=== PATIENT | male | born 2000 | race Caucasian/White ===

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

== ENCOUNTER 2021-03-07 07:28 | Emergency (ER) | payer OTHER ==
[~2021-03-07] VITALS: Ht 180.3 cm; Wt 81.0 kg
[2021-03-07] MEDS ORDERED: IV NORMAL SALINE 1,000ML 1,000 ML IV ONE ×2 (07:45→08:45)
[2021-03-07] MEDS ORDERED: levETIRAcetam 500 MG TABLET PO STA (07:55)
[2021-03-07 07:58] LABS: BASO # 0.1 x10^3/uL (0.0-0.2); BASO % 1 % (0-3); EOS # 0.4 x10^3/uL (0.0-0.7); EOS % 2 % (0-3); HEMATOCRIT 45.7 % (39.0-53.0); HEMOGLOBIN 15.3 g/dL (13.0-17.5); LYMPH # 8.4 x10^3/uL (1.0-4.8); LYMPH % 51 % (24-48); MEAN CORPUSCULAR HEMOGLOBIN 30 pg (25-35); MEAN CORPUSCULAR HGB CONC 34 g/dL (31-37); MEAN CORPUSCULAR VOLUME 89 fL (79-100); MONO # 1.1 x10^3/uL (0.0-1.1); MONO % 6 % (0-9); NEUT # 6.6 x10^3uL (1.8-7.7); NEUT % 40 % (31-73); PLATELET COUNT 330 x10^3/uL (140-400); RED BLOOD COUNT 5.15 x10^6/uL (4.30-5.70); RED CELL DISTRIBUTION WIDTH 13.4 % (11.5-14.5); WHITE BLOOD COUNT 16.6 x10^3/uL (4.0-11.0)
--- NOTE | 2021-03-07 08:02 | PHYS DOC ---
Past History Past Medical History: Seizure, Other Additional Past Medical Histor: meningitis as infant Past Surgical History: No Surgical History Smoking: Non-smoker Alcohol Use: Occasionally Drug Use: Marijuana General Adult EDM: Chief Complaint: SEIZURE HPI: HPI: 20-year-old male presents after seizure. Patient has neurologist diagnosed panic induced seizures. He is on Keppra 500 twice a day. This morning he called his mother and told her that he was not feeling quite right. She decided to go over and check on him. When she arrived he was lying facedown on the floor and appeared to be convulsing. The patient has lost bladder, bit his tongue, and has an abrasion on the bridge of his nose. The patient has not taken his morning Keppra dose today. He states not missing any other doses. He does not know why he is feeling anxious. He did have a friend killed recently in an auto accident about 4 days ago. When the patient was starting to feel anxious this morning he smoked marijuana. This did not help with his anxiety. He does not remember falling on the floor and hitting his face. He denies fever or chills. Review of Systems: Review of Systems: Constitutional: Denies fever or chills Eyes: Denies change in visual acuity HENT: Denies nasal congestion or sore throat Respiratory: Denies cough or shortness of breath Cardiovascular: Denies chest pain or edema GI: Denies abdominal pain, nausea, vomiting, bloody stools or diarrhea : Denies dysuria Musculoskeletal: Denies back pain or joint pain Integument: Denies rash Neurologic: Seizure. Denies headache, focal weakness or sensory changes Endocrine: Denies polyuria or polydipsia Lymphatic: Denies swollen glands Psychiatric: Denies depression or anxiety Current Medications: Current Meds: Current Medications Medications (Trade) Dose Ordered Sig/Shirley Start Time Stop Time Status Last Admin Dose Admin Levetiracetam (Keppra) 1,000 mg 1X STAT 03/07/21 07:55 03/07/21 07:56 UNV Lorazepam (Ativan Inj) 2 mg 1X ONCE 03/07/21 08:00 03/07/21 08:01 UNV Sodium Chloride 1,000 ml @ 1,000 mls/hr 1X ONCE 03/07/21 07:45 03/07/21 08:44 Allergies: Allergies: Allergies Coded Allergies Type Severity Reaction Last Updated Verified No Known Drug Allergies 07/25/14 No Physical Exam: PE: Constitutional: Well developed, well nourished, mild acute distress, jittery and almost constantly moving, non-toxic appearance. [] HENT: Normocephalic, atraumatic, bilateral external ears normal, oropharynx moist, no oral exudates, nose swollen with ecchymosis and a small abrasion. [] Eyes: PERRLA, EOMI, conjunctiva normal, no discharge. [] Neck: Normal range of motion, no tenderness, supple, no stridor. [] Cardiovascular: Heart rate 150, regular rhythm, no murmur [] Lungs & Thorax: Bilateral breath sounds clear to auscultation [] Abdomen: Bowel sounds normal, soft, no tenderness, no masses, no pulsatile masses. [] Skin: Warm, dry, no erythema, no rash. [] Back: No tenderness, no CVA tenderness. [] Extremities: No tenderness, no cyanosis, no clubbing, ROM intact, no edema. [] Neurologic: Alert and oriented X 3, normal motor function, normal sensory function, no focal deficits noted. [] Psychologic: Affect normal, judgement normal, mood very anxious. [] Current Patient Data: Vital Signs: Vital Signs Date Time Temp Pulse Resp B/P (MAP) Pulse Ox O2 Delivery O2 Flow Rate FiO2 03/07/21 07:37 98.1 158 22 90/71 (77) 97 Room Air EKG: EKG: Sinus tachycardia, rate 125, normal axis, flattened T waves, no ST elevation or depression. [] Radiology/Procedures: Radiology/Procedures: [] Impressions: EXAM: Maxillofacial bones, 3 views. HISTORY: Trauma. COMPARISON: None. FINDINGS: 3 views of the maxillofacial bones are obtained. No displaced fracture is seen. There is no sinus opacification or air-fluid level. There is minimal rightward nasal septal deviation. IMPRESSION: No acute osseous finding. Electronically signed by: Nathalie Mcmullen MD (03/07/2021 8:25 AM) [id number] DICTATED AND SIGNED BY: NATHALIE MCMULLEN MD DATE: 03/07/21 0825 CC: BETI VELASCO DO; JC LANTIGUA MD ~MTH0 0 Heart Score: C/O Chest Pain: No Risk Factors: Risk Factors: DM, Current or recent (<one month) smoker, HTN, HLP, family history of CAD, obesity. Risk Scores: Score 0 - 3: 2.5% MACE over next 6 weeks - Discharge Home Score 4 - 6: 20.3% MACE over next 6 weeks - Admit for Clinical Observation Score 7 - 10: 72.7% MACE over next 6 weeks - Early Invasive Strategies Course & Med Decision Making: Course & Med Decision Making Pertinent Labs and Imaging studies reviewed. (See chart for details) The patient's EKG shows sinus tach to 125. His potassium is 2.9. He is able to take p.o. so I have ordered 40 mEq by mouth. He also has a blood sugar of 310 and anion gap of 23. Creatinine is 1.5 with a BUN of 11. I have ordered 2 L of normal saline. After the first liter of normal saline, repeat blood sugar was 59. This leads me to believe that this was lab error. Patient has no history of diabetes. We have given a total of 80 mEq of potassium p.o. The patient's facial x-rays are negative for fracture. For his anxiety given the patient 2 mg of Ativan IV. This helped him calm down quite a bit and he was able to fall asleep. His heart rate has returned to normal. I have given him 1 g of Keppra p.o. The patient's urine drug screen is positive for marijuana but negative for other drugs. Urinalysis did have some glucose in it. I have advised that he follow-up with his primary physician to make sure that his blood sugar regulation returns to normal. He is stable for discharge at this time. [] Roseline Disclaimer: Roseline Disclaimer: This electronic medical record was generated, in whole or in part, using a voice recognition dictation system. Departure Departure: Impression: Primary Impression: Seizure Additional Impressions: Hypokalemia Elevated serum creatinine Disposition: 01 HOME / SELF CARE / HOMELESS Condition: IMPROVED Referrals: JC LANTIGUA MD (PCP) Patient Instructions: Hypokalemia, Seizure, Adult BETI VELASCO DO Mar 07, 2021 08:02
[2021-03-07 08:10] LABS: ALBUMIN 4.1 g/dL (3.4-5.0); ALBUMIN/GLOBULIN RATIO 1.5 (1.0-1.7); CREATININE 1.5 mg/dL (0.7-1.3); GFR 60.3; TOTAL BILIRUBIN 0.3 mg/dL (0.2-1.0); TOTAL PROTEIN 6.9 g/dL (6.4-8.2)
[2021-03-07 08:12] LABS: POTASSIUM 2.9 mmol/L (3.5-5.1)
[2021-03-07] MEDS ORDERED: POTASSIUM CHLORIDE 20 MEQ TABLET.ER. PO ONE ×2 (08:15→09:15)
--- NOTE | 2021-03-07 08:28 | RAD ---
EXAM: Maxillofacial bones, 3 views. HISTORY: Trauma. COMPARISON: None. FINDINGS: 3 views of the maxillofacial bones are obtained. No displaced fracture is seen. There is no sinus opacification or air-fluid level. There is minimal rightward nasal septal deviation. IMPRESSION: No acute osseous finding. Electronically signed by: Nathalie Mcmullen MD (03/07/2021 8:25 AM) [id number]
[2021-03-07 09:06] LABS: % ATYL 10 % (0-0); % EOS 2 % (0-5); % LYMPHS 43 % (24-48); % MONOS 8 % (0-10); % SEGS 37 % (35-66)
[2021-03-07 09:24] LABS: PLT ESTIMATE ADEQUATE (ADEQUATE)
--- NOTE | 2021-03-07 09:24 | EKG ---
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
[2021-03-07 09:34] LABS: BILIRUBIN,URINE NEG (NEG); CLARITY,URINE CLEAR; COLOR,URINE YELLOW; GLUCOSE,URINE 250 mg/dL (NEG)
[2021-03-07 09:35] LABS: BACTERIA,URINE 0 /HPF (0-FEW); NITRITE,URINE NEG (NEG); RBC,URINE OCC /HPF (0-2); SQUAMOUS EPITHELIAL CELL,UR OCC /LPF; UROBILINOGEN,URINE 0.2 mg/dL (0.2 mg/dL); WBC,URINE OCC /HPF (0-4)
[2021-03-07 09:52] LABS: BARBITURATES NEG (NEG); BENZODIAZEPINES NEG (NEG); CANNABINOIDS POS (NEG); COCAINE NEG (NEG); METHADONE NEG (NEG); OPIATES NEG (NEG); PHENCYCLIDINE NEG (NEG)
[2021-03-07 09:58] LABS: AMPHETAMINE/METHAMPHETAMINE NEG (NEG)
[2021-03-07 10:20] VITALS: BP 102/41
== END 2021-03-07 10:55 | disposition home or self-care (01) ==
LOC: ER 07:28
DX: S00.33XA Contusion of nose, initial encounter (principal); R56.9 Unspecified convulsions; E87.6 Hypokalemia; R79.89 Other specified abnormal findings of blood chemistry; W18.09XA Striking against other object with subsequent fall, initial encounter; Y93.89 Activity, other specified; Y92.89 Other specified places as the place of occurrence of the external cause; Y99.8 Other external cause status
CPT/HCPCS: 36415; 70150; 80053; 80307; 81001; 82947; 84484; 85007; 85025; 93005; 96361; 96374; 99285; J2060; J7030

== ENCOUNTER 2021-04-17 06:33 | Emergency (ER) | payer OTHER ==
[~2021-04-17] VITALS: Ht 180.3 cm; Wt 81.0 kg
--- NOTE | 2021-04-17 07:13 | PHYS DOC ---
Past History Past Medical History: Anxiety, Seizure, Other Additional Past Medical Histor: meningitis as infant, anxiety induced seizures Past Surgical History: No Surgical History Smoking: Non-smoker Alcohol Use: None Drug Use: Marijuana General Adult EDM: Chief Complaint: SEIZURE HPI: HPI: Patient is a 20-year-old male coming in for seizure-like activity. Patient states that he had gone to bed and reportedly had a seizure, says last year was waking up and having EMS around him.. Patient sees a neurologist has been taking Keppra for "anxiety induced" seizures. Has not been done was no incontinence. States he has been compliant on Keppra but has been out of his Lexapro for the past week as he is at [facility] pick it up from the pharmacy. No other illness states he was felt well. States he has seizures approximately every 2 months, and last seizure was about 1 month ago. Review of Systems: Review of Systems: Constitutional: Denies fever or chills Eyes: Denies change in visual acuity HENT: Denies nasal congestion or sore throat Respiratory: Denies cough or shortness of breath Cardiovascular: Denies chest pain or edema GI: Denies abdominal pain, nausea, vomiting, bloody stools or diarrhea : Denies dysuria Musculoskeletal: Denies back pain or joint pain Integument: Denies rash Neurologic: Denies headache, focal weakness or sensory changes Endocrine: Denies polyuria or polydipsia Lymphatic: Denies swollen glands Psychiatric: Denies depression or anxiety Current Medications: Current Meds: All other systems within normal limits except for as noted in the HPI Allergies: Allergies: Allergies Coded Allergies Type Severity Reaction Last Updated Verified No Known Drug Allergies 07/25/14 No Physical Exam: PE: Constitutional: Well developed, well nourished, no acute distress, non-toxic appearance. [] HENT: Normocephalic, atraumatic, bilateral external ears normal, nose normal. [] Eyes: PERRLA, conjunctiva normal, no discharge. [] Neck: No rigidity, supple, no stridor. [] Cardiovascular: Regular rate and rhythm, brisk cap refill [] Lungs & Thorax: Non labored symmetric respirations, no tachypnea or respiratory distress [] Abdomen: Soft, nondistended. Skin: Warm, dry, no erythema, no rash. [] Back: Unremarkable Extremities: No deformities, range of motion grossly intact, no lower extremity edema [] Neurologic: Alert and oriented X 3, no focal deficits noted. [] Psychologic: Affect normal, judgement normal, mood normal. [] Current Patient Data: Vital Signs: Vital Signs Date Time Temp Pulse Resp B/P (MAP) Pulse Ox O2 Delivery O2 Flow Rate FiO2 04/17/21 06:33 98.5 122 20 118/69 (85) 94 Room Air EKG: EKG: Sinus rhythm, heart rate 160 bpm, no ST elevation or depression, no ectopy. Normal intervals. Normal axis [] Radiology/Procedures: Radiology/Procedures: [] Heart Score: C/O Chest Pain: No Risk Factors: Risk Factors: DM, Current or recent (<one month) smoker, HTN, HLP, family history of CAD, obesity. Risk Scores: Score 0 - 3: 2.5% MACE over next 6 weeks - Discharge Home Score 4 - 6: 20.3% MACE over next 6 weeks - Admit for Clinical Observation Score 7 - 10: 72.7% MACE over next 6 weeks - Early Invasive Strategies Course & Med Decision Making: Course & Med Decision Making Pertinent Labs and Imaging studies reviewed. (See chart for details) [] Dragon Disclaimer: Dragon Disclaimer: This electronic medical record was generated, in whole or in part, using a voice recognition dictation system. Departure Departure: Impression: Primary Impression: Seizure Disposition: 01 HOME / SELF CARE / HOMELESS Condition: STABLE Referrals: JC LANTIGUA MD (PCP) JOHANNA LEWIS MD Patient Instructions: Seizure, Adult EVANGELINA CUNNINGHAM MD April 17, 2021 07:13
[2021-04-17] MEDS ORDERED: IV NORMAL SALINE 1,000ML 1,000 ML IV ONE (07:15)
[2021-04-17 07:32] LABS: BACTERIA,URINE 0 /HPF (0-FEW); BARBITURATES NEG (NEG); BENZODIAZEPINES NEG (NEG); BILIRUBIN,URINE NEG (NEG); CANNABINOIDS POS (NEG); CLARITY,URINE CLEAR; COCAINE NEG (NEG); COLOR,URINE YELLOW; GLUCOSE,URINE NEG (NEG); METHADONE NEG (NEG); NITRITE,URINE NEG (NEG); OPIATES NEG (NEG); PHENCYCLIDINE NEG (NEG); RBC,URINE 0 /HPF (0-2); UROBILINOGEN,URINE 0.2 mg/dL (0.2 mg/dL); WBC,URINE 0 /HPF (0-4)
[2021-04-17 07:34] LABS: AMPHETAMINE/METHAMPHETAMINE NEG (NEG)
[2021-04-17 08:26] LABS: BASO % 0 % (0-3); EOS # 0.1 x10^3/uL (0.0-0.7); EOS % 1 % (0-3); HEMATOCRIT 42.6 % (39.0-53.0); HEMOGLOBIN 14.6 g/dL (13.0-17.5); LYMPH # 2.1 x10^3/uL (1.0-4.8); LYMPH % 15 % (24-48); MEAN CORPUSCULAR HEMOGLOBIN 30 pg (25-35); MEAN CORPUSCULAR HGB CONC 34 g/dL (31-37); MEAN CORPUSCULAR VOLUME 87 fL (79-100); MONO # 0.9 x10^3/uL (0.0-1.1); MONO % 7 % (0-9); NEUT % 78 % (31-73); PLATELET COUNT 212 x10^3/uL (140-400); RED BLOOD COUNT 4.89 x10^6/uL (4.30-5.70); RED CELL DISTRIBUTION WIDTH 12.6 % (11.5-14.5); WHITE BLOOD COUNT 14.1 x10^3/uL (4.0-11.0)
[2021-04-17 08:35] LABS: CALCIUM 8.9 mg/dL (8.5-10.1); CREATININE 1.1 mg/dL (0.7-1.3); GFR 86.2; POTASSIUM 3.5 mmol/L (3.5-5.1)
[2021-04-17 08:46] LABS: ALBUMIN 3.5 g/dL (3.4-5.0); ALBUMIN/GLOBULIN RATIO 1.3 (1.0-1.7); MAGNESIUM 2.7 mg/dL (1.8-2.4); PHOSPHORUS 1.3 mg/dL (2.6-4.7); TOTAL BILIRUBIN 0.3 mg/dL (0.2-1.0); TOTAL PROTEIN 6.1 g/dL (6.4-8.2)
[2021-04-17 09:25] VITALS: BP 99/43
--- NOTE | 2021-04-17 18:36 | EKG ---
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
== END 2021-04-17 09:33 | disposition home or self-care (01) ==
LOC: ER 06:33
DX: R56.9 Unspecified convulsions (principal); F41.9 Anxiety disorder, unspecified
CPT/HCPCS: 36415; 80053; 80177; 80307; 81001; 82550; 83735; 84100; 85025; 93005; 96360; 96361; 99285; G0480; J7030

== ENCOUNTER 2021-04-26 14:30 | Emergency (ER) | payer OTHER ==
[~2021-04-26] VITALS: Ht 180.3 cm; Wt 81.0 kg
[2021-04-26 14:42] VITALS: BP 159/83
[2021-04-26] MEDS ORDERED: DEXAMETHASONE SOD PHOS 10 MG/ML VIAL. PO ONE (14:45)
--- NOTE | 2021-04-26 15:02 | PHYS DOC ---
Past History Past Medical History: Anxiety, Seizure, Other Additional Past Medical Histor: meningitis as infant, anxiety induced seizures Past Surgical History: No Surgical History Smoking: Non-smoker Alcohol Use: None Drug Use: Marijuana General Adult EDM: Chief Complaint: SORE THROAT HPI: HPI: Continue male coming in for sore throat. Denies any other complaints. Denies cough, vomiting, fevers. Patient denies any neck stiffness or rigidity. Patient states symptoms been worsening since yesterday and he had difficult time taking his regular medications due to the pain. Has history of prior strep throat, denies any history of tonsillitis. Review of Systems: Review of Systems: All other systems within normal limits except for as noted in the HPI Current Medications: Current Meds: Current Medications Medications (Trade) Dose Ordered Sig/Shirley Start Time Stop Time Status Last Admin Dose Admin Dexamethasone Sodium Phosphate (Decadron) 10 mg 1X ONCE 04/26/21 14:45 04/26/21 14:49 DC Allergies: Allergies: Allergies Coded Allergies Type Severity Reaction Last Updated Verified No Known Drug Allergies 04/26/21 No Physical Exam: PE: Constitutional: Well developed, well nourished, no acute distress, non-toxic appearance. [] HENT: Normocephalic, atraumatic, bilateral external ears normal, nose normal. Oropharynx moist, mild erythema posterior pharynx with some exudates. Tonsils unremarkable. No swelling or uvular shift. [] Eyes: PERRLA, conjunctiva normal, no discharge. [] Neck: No rigidity, supple, no stridor. No cervical lymphadenopathy [] Cardiovascular: Regular rate and rhythm, brisk cap refill [] Lungs & Thorax: Non labored symmetric respirations, no tachypnea or respiratory distress [] Abdomen: Soft, nondistended. Skin: Warm, dry, no erythema, no rash. [] Back: Unremarkable Extremities: No deformities, range of motion grossly intact, no lower extremity edema [] Neurologic: Alert and oriented X 3, no focal deficits noted. [] Psychologic: Affect normal, judgement normal, mood normal. [] Current Patient Data: Vital Signs: Vital Signs Date Time Temp Pulse Resp B/P (MAP) Pulse Ox O2 Delivery O2 Flow Rate FiO2 04/26/21 14:42 98.0 79 159/83 (108) 98 Room Air EKG: EKG: [] Radiology/Procedures: Radiology/Procedures: [] Heart Score: C/O Chest Pain: No Risk Factors: Risk Factors: DM, Current or recent (<one month) smoker, HTN, HLP, family history of CAD, obesity. Risk Scores: Score 0 - 3: 2.5% MACE over next 6 weeks - Discharge Home Score 4 - 6: 20.3% MACE over next 6 weeks - Admit for Clinical Observation Score 7 - 10: 72.7% MACE over next 6 weeks - Early Invasive Strategies Course & Med Decision Making: Course & Med Decision Making Strep positive, treated with Bicillin injection. Dragon Disclaimer: [employer] Disclaimer: This electronic medical record was generated, in whole or in part, using a voice recognition dictation system. Departure Departure: Impression: Primary Impression: Strep pharyngitis Disposition: HOME / SELF CARE / HOMELESS Condition: STABLE Referrals: JC LANTIGUA MD (PCP) Patient Instructions: Strep Throat Additional Instructions: Use [id number] throat lozenges or liquids as needed for pain. Can also use Tylenol and ibuprofen. EVANGELINA CUNNINGHAM MD Apr 26, 2021 15:02
[2021-04-26] MEDS ORDERED: PENICILLIN G BENZATHINE LA 1,200,000 UNIT/2 ML DISP.SYRIN. IM ONE (15:45)
== END 2021-04-26 16:00 | disposition home or self-care (01) ==
LOC: ER 14:30
DX: J02.0 Streptococcal pharyngitis (principal); F41.9 Anxiety disorder, unspecified
CPT/HCPCS: 87880; 96372; 99283; J0561; J1100

== ENCOUNTER 2021-06-12 10:02 | Observation (INO) | payer OTHER ==
[~2021-06-12] VITALS: Ht 180.3 cm; Wt 78.2 kg
[2021-06-12] MEDS ORDERED: LORazepam 1 MG TABLET PO ONE (10:15)
[2021-06-12] MEDS ORDERED: IV NORMAL SALINE 100ML 100 ML ONE (10:39)
[2021-06-12] MEDS ORDERED: levETIRAcetam 500 MG/5 ML VIAL IV ONE (10:39)
[2021-06-12] MEDS ORDERED: NORMAL SALINE IV ONE (10:45)
[2021-06-12] MEDS ORDERED: LEVETIRACETAM IV ONE (10:45)
--- NOTE | 2021-06-12 11:30 | RAD ---
EXAM: CHEST 1 VIEW History: Seizure ,desaturation COMPARISON: None available. TECHNIQUE: Single portable radiograph of the chest FINDINGS: The cardiac silhouette is unremarkable. The lungs are clear bilaterally. The costophrenic sulci are clear and well demarcated. Millimeter IMPRESSION: No radiographic evidence of an acute cardiopulmonary process. Electronically signed by: Dashawn Borges MD (06/12/2021 11:27 AM) [id number]
[2021-06-12 11:39] LABS: BASO # 0.2 x10^3/uL (0.0-0.2); BASO % 1 % (0-3); EOS # 0.2 x10^3/uL (0.0-0.7); EOS % 1 % (0-3); HEMATOCRIT 48.6 % (39.0-53.0); LYMPH # 5.8 x10^3/uL (1.0-4.8); LYMPH % 17 % (24-48); MEAN CORPUSCULAR HEMOGLOBIN 30 pg (25-35); MEAN CORPUSCULAR HGB CONC 33 g/dL (31-37); MEAN CORPUSCULAR VOLUME 91 fL (79-100); MONO # 1.2 x10^3/uL (0.0-1.1); MONO % 3 % (0-9); NEUT # 27.5 x10^3uL (1.8-7.7); NEUT % 79 % (31-73); PLATELET COUNT 345 x10^3/uL (140-400); RED BLOOD COUNT 5.37 x10^6/uL (4.30-5.70); RED CELL DISTRIBUTION WIDTH 13.3 % (11.5-14.5); WHITE BLOOD COUNT 34.9 x10^3/uL (4.0-11.0)
[2021-06-12 11:57] LABS: ALBUMIN 4.4 g/dL (3.4-5.0); ALBUMIN/GLOBULIN RATIO 1.4 (1.0-1.7); CALCIUM 8.8 mg/dL (8.5-10.1); CREATININE 1.8 mg/dL (0.7-1.3); GFR 48.9; POTASSIUM 3.2 mmol/L (3.5-5.1); TOTAL BILIRUBIN 0.3 mg/dL (0.2-1.0); TOTAL PROTEIN 7.5 g/dL (6.4-8.2)
[2021-06-12 12:00] LABS: % BANDS 5 % (0-9); % EOS 1 % (0-5); % LYMPHS 20 % (24-48); % METAS 1 % (0-0); % MONOS 3 % (0-10); % SEGS 70 % (35-66); PLT ESTIMATE ADEQUATE (ADEQUATE)
[2021-06-12] MEDS ORDERED: IV RINGERS SOLUTION,LACTATED 1,000 ML IV ONE (13:00)
[2021-06-12 14:19] LABS: BASO % 0 % (0-3); EOS % 0 % (0-3); HEMATOCRIT 43.4 % (39.0-53.0); HEMOGLOBIN 14.8 g/dL (13.0-17.5); LYMPH # 1.1 x10^3/uL (1.0-4.8); LYMPH % 5 % (24-48); MEAN CORPUSCULAR HEMOGLOBIN 30 pg (25-35); MEAN CORPUSCULAR HGB CONC 34 g/dL (31-37); MEAN CORPUSCULAR VOLUME 87 fL (79-100); MONO # 1.8 x10^3/uL (0.0-1.1); MONO % 8 % (0-9); NEUT # 20.5 x10^3uL (1.8-7.7); NEUT % 87 % (31-73); PLATELET COUNT 225 x10^3/uL (140-400); RED BLOOD COUNT 5.01 x10^6/uL (4.30-5.70); RED CELL DISTRIBUTION WIDTH 13.2 % (11.5-14.5); WHITE BLOOD COUNT 23.4 x10^3/uL (4.0-11.0)
[2021-06-12 14:29] LABS: CALCIUM 8.7 mg/dL (8.5-10.1); CREATININE 1.5 mg/dL (0.7-1.3); GFR 60.3; POTASSIUM 3.5 mmol/L (3.5-5.1)
--- NOTE | 2021-06-12 15:22 | PHYS DOC ---
Past History Past Medical History: Anxiety, Seizure, Other Additional Past Medical Histor: meningitis as infant, seizures Past Surgical History: No Surgical History Smoking: Non-smoker Additional Smoking Information: VAPES Alcohol Use: None Drug Use: Marijuana General Adult EDM: Chief Complaint: SEIZURE HPI: HPI: Patient is a [age] year old male with history of seizures of unclear etiology who presents with four seizures this morning. Unclear whether he returned to his full baseline in between seizures. He was brought in after his third witnessed seizure. In the emergency department he had an additional fourth seizure. He has reportedly been taking his seizure medications. He takes Keppra 500 mg twice daily. He has had no fevers/chills, or any other acute s ymptoms. Family feels that they are anxiety related and that he has been overwhelmed at work leading to some of his seizures in the past. He follows with Dr. Valenzuela of neurology. Review of Systems: Review of Systems: Constitutional: Denies fever or chills Eyes: Denies change in visual acuity HENT: +TONGUE BITING. Denies nasal congestion or sore throat Respiratory: Denies cough or shortness of breath Cardiovascular: Denies chest pain or edema GI: Denies abdominal pain, nausea, vomiting, bloody stools or diarrhea : Denies dysuria Musculoskeletal: Denies back pain or joint pain Integument: Denies rash Neurologic: + SEIZURE Denies headache, focal weakness or sensory changes Endocrine: Denies polyuria or polydipsia Lymphatic: Denies swollen glands Psychiatric: Denies depression or anxiety Current Medications: Current Meds: Current Medications Medications (Trade) Dose Ordered Sig/Shirley Start Time Stop Time Status Last Admin Dose Admin Lactated Ringer's 1,000 ml @ 1,000 mls/hr 1X ONCE 06/12/21 13:00 06/12/21 13:59 DC 06/12/21 13:00 1,000 MLS/HR Levetiracetam (Keppra) 500 mg STK-MED ONCE 06/12/21 10:39 06/12/21 10:40 DC Levetiracetam 2000 mg/Sodium Chloride 120 ml @ 400 mls/hr 1X ONCE 06/12/21 10:45 06/12/21 11:02 DC 06/12/21 11:15 400 MLS/HR Lorazepam (Ativan Inj) 2 mg STK-MED ONCE 06/12/21 10:24 06/12/21 10:25 DC Lorazepam (Ativan) 1 mg 1X ONCE 06/12/21 10:15 06/12/21 10:16 DC 06/12/21 10:18 1 MG Sodium Chloride 100 ml @ As Directed STK-MED ONCE 06/12/21 10:39 06/12/21 10:40 DC Allergies: Allergies: Allergies Coded Allergies Type Severity Reaction Last Updated Verified No Known Drug Allergies 04/26/21 No Physical Exam: PE: Constitutional: Appears fatigued. Somnolent. Awakes and answers questions. [] HENT: Lateral tongue biting bilaterally oropharynx moist, no oral exudates, nose normal. [] Eyes: PERRLA, EOMI, conjunctiva normal, no discharge. [] Neck: Normal range of motion, no tenderness, supple, no stridor. [] Cardiovascular:Heart rate regular rhythm, no murmur [] Lungs & Thorax: Bilateral breath sounds clear to auscultation [] Abdomen: Bowel sounds normal, soft, no tenderness, no masses, no pulsatile masses. [] Skin: Warm, dry, no erythema, no rash. [] Back: No tenderness, no CVA tenderness. [] Extremities: No tenderness, no cyanosis, no clubbing, ROM intact, no edema. [] Neurologic: Alert and oriented X 3, normal motor function, normal sensory function, no focal deficits noted. Witnessed seizure with flexion activity of all four extremities. Tonic-clonic. Generalized. [] Psychologic: Affect normal, judgement normal, mood normal. [] Current Patient Data: Labs: Laboratory Tests Test 06/12/21 11:20 06/12/21 14:00 White Blood Count 34.9 x10^3/uL (4.0-11.0) H 23.4 x10^3/uL (4.0-11.0) H Red Blood Count 5.37 x10^6/uL (4.30-5.70) 5.01 x10^6/uL (4.30-5.70) Hemoglobin 16.0 g/dL (13.0-17.5) 14.8 g/dL (13.0-17.5) Hematocrit 48.6 % (39.0-53.0) 43.4 % (39.0-53.0) Mean Corpuscular Volume 91 fL (79-100) 87 fL (79-100) Mean Corpuscular Hemoglobin 30 pg (25-35) 30 pg (25-35) Mean Corpuscular Hemoglobin Concent 33 g/dL (31-37) 34 g/dL (31-37) Red Cell Distribution Width 13.3 % (11.5-14.5) 13.2 % (11.5-14.5) Platelet Count 345 x10^3/uL (140-400) 225 x10^3/uL (140-400) Neutrophils (%) (Auto) 79 % (31-73) H 87 % (31-73) H Lymphocytes (%) (Auto) 17 % (24-48) L 5 % (24-48) L Monocytes (%) (Auto) 3 % (0-9) 8 % (0-9) Eosinophils (%) (Auto) 1 % (0-3) 0 % (0-3) Basophils (%) (Auto) 1 % (0-3) 0 % (0-3) Neutrophils # (Auto) 27.5 x10^3uL (1.8-7.7) H 20.5 x10^3uL (1.8-7.7) H Lymphocytes # (Auto) 5.8 x10^3/uL (1.0-4.8) H 1.1 x10^3/uL (1.0-4.8) Monocytes # (Auto) 1.2 x10^3/uL (0.0-1.1) H 1.8 x10^3/uL (0.0-1.1) H Eosinophils # (Auto) 0.2 x10^3/uL (0.0-0.7) 0.0 x10^3/uL (0.0-0.7) Basophils # (Auto) 0.2 x10^3/uL (0.0-0.2) 0.0 x10^3/uL (0.0-0.2) Segmented Neutrophils % 70 % (35-66) H Band Neutrophils % 5 % (0-9) Lymphocytes % 20 % (24-48) L Monocytes % 3 % (0-10) Eosinophils % 1 % (0-5) Metamyelocytes % 1 % (0-0) H Platelet Estimate Adequate (ADEQUATE) Sodium Level 142 mmol/L (136-145) 142 mmol/L (136-145) Potassium Level 3.2 mmol/L (3.5-5.1) L 3.5 mmol/L (3.5-5.1) Chloride Level 104 mmol/L (98-107) 107 mmol/L (98-107) Carbon Dioxide Level 10 mmol/L (21-32) *L 24 mmol/L (21-32) Anion Gap 28 (6-14) H 11 (6-14) Blood Urea Nitrogen 13 mg/dL (8-26) 15 mg/dL (8-26) Creatinine 1.8 mg/dL (0.7-1.3) H 1.5 mg/dL (0.7-1.3) H Estimated GFR (Cockcroft-Gault) 48.9 60.3 BUN/Creatinine Ratio 7 (6-20) Glucose Level 291 mg/dL (70-99) H 71 mg/dL (70-99) Calcium Level 8.8 mg/dL (8.5-10.1) 8.7 mg/dL (8.5-10.1) Total Bilirubin 0.3 mg/dL (0.2-1.0) Aspartate Amino Transferase (AST) 22 U/L (15-37) Alanine Aminotransferase (ALT) 21 U/L (16-63) Alkaline Phosphatase 74 U/L (46-116) Total Protein 7.5 g/dL (6.4-8.2) Albumin 4.4 g/dL (3.4-5.0) Albumin/Globulin Ratio 1.4 (1.0-1.7) Vital Signs: Vital Signs Date Time Temp Pulse Resp B/P (MAP) Pulse Ox O2 Delivery O2 Flow Rate FiO2 06/12/21 11:35 109 48 155/77 (103) 95 Room Air 06/12/21 10:05 97.8 EKG: EKG: NA [] Radiology/Procedures: Radiology/Procedures: CXR, NO ACUTE PROCESS. [] Heart Score: C/O Chest Pain: N/A Risk Factors: Risk Factors: DM, Current or recent (<one month) smoker, HTN, HLP, family history of CAD, obesity. Risk Scores: Score 0 - 3: 2.5% MACE over next 6 weeks - Discharge Home Score 4 - 6: 20.3% MACE over next 6 weeks - Admit for Clinical Observation Score 7 - 10: 72.7% MACE over next 6 weeks - Early Invasive Strategies Course & Med Decision Making: Course & Med Decision Making Pertinent Labs and Imaging studies reviewed. (See chart for details) Patient is a 20-year-old male with a history of seizures of unclear etiology on 500 mg of Keppra twice daily who presents with four witnessed seizures today. The last of which was witnessed in the emergency department, and lasted approximately 3 minutes. It broke with 2 mg of IV Ativan. He was loaded with 2 g of Keppra IV at the same time. He then began to clear, and his getting closer to his baseline although he is still somewhat somnolent. Discussed with Dr. Valenzuela, his neurologist, who would prefer that he be admitted for observation. White count was initially 35K, creatinine 1.8, bicarb 10 on labs taken just after his seizure. He is all improved on repeat labs after 1 L of IV fluids. Creatinine remains 1.5 even on repeat. Patient will be admitted to Dr. Simeon, the hospitalist here at [facility] Disclaimer: Roseline Disclaimer: This electronic medical record was generated, in whole or in part, using a voice recognition dictation system. Departure Departure: Impression: Primary Impression: Breakthrough seizure Disposition: ADMITTED INPATIENT Admitting Physician: Dakota Simeon Condition: STABLE Referrals: JC LANTIGUA MD (PCP) ANTONETTE FARIAS MD Jun 12, 2021 15:22
[2021-06-12] MEDS: ONDANSETRON PF 4 MG/2 ML VIAL. IVP PRN (16:15)
[2021-06-12 17:32] VITALS: BP 127/75
[2021-06-12] MEDS ORDERED: PROCHLORPERAZINE 10 MG/2 ML VIAL. IV ONE (18:15)
--- NOTE | 2021-06-12 18:15 | NUR ---
ADMISSION Pt admitted by Dr. Scott for observation and further care for breakthrough seizures. Pt very tired and drowsy after 4 seizures today and multiple rounds of Ativan. This RN called Dr. Valladares for orders and medications. Consult to Dr. Valenzuela for continued care of seizures and keppra dosing. Will continue to monitor. CC, RN
--- NOTE | 2021-06-12 18:33 | RAD ---
CT head without contrast: Reason for examination: Leukocytosis, confusion and weakness. Comparison is made to previous study dated 04/05/2019. Helical images were obtained through the brain with no contrast administered. Exposure: One or more of the following individualized dose reduction techniques were utilized for thi s examination: 1. Automated exposure control 2. Adjustment of the mA and/or kV according to patient size 3. Use of iterative reconstruction technique. Ventricular systems are symmetric and not dilated. No midline shift is seen. There is no evidence of intracranial hemorrhage, infarct, mass or edema. No abnormalities are seen at the orbits. The paranas al sinuses and mastoid air cells are clear. No acute abnormality seen in the skull. There is again no te made of nasal septal deviation to the right. IMPRESSION: No acute intracranial abnormality evident. Electronically signed by: Madison Kolb MD (06/12/2021 6:30 PM) ROLA
[2021-06-12] MEDS: IV RINGERS SOLUTION,LACTATED 1,000 ML IV SCH (19:27)
--- NOTE | 2021-06-12 20:41 | EKG ---
[address] [address] Test Date: 2021-06-12 Test Time: 20:30:33 Pat Name: ZACH MCCALLUM Department: Room: 124 A Gender: M Research Project Coordinator: : 2000 Requested By: JC LANTIGUA Order Number: [id number] Reading MD: Measurements Intervals [place] Rate: 86 P: 111 CA: 122 QRS: 8 QRSD: 92 T: 7 QT: 352 QTc: 424 Interpretive Statements SINUS RHYTHM NO SPECIFIC ECG ABNORMALITIES RI6.01 No previous ECG available for comparison
[2021-06-12] MEDS ORDERED: NICOTINE 21MG PATCH. TD PRN (20:45)
[2021-06-12] MEDS ORDERED: ESCI10TA90 PO (21:18)
[2021-06-12] MEDS ORDERED: LEVE500T6 PO (21:18)
[2021-06-12] MEDS: PROCHLORPERAZINE 10 MG/2 ML VIAL. IV PRN (21:55)
[2021-06-12] MEDS: levETIRAcetam 500 MG TABLET PO SCH (21:55)
[2021-06-12 22:56] VITALS: BP 105/61
[2021-06-13] MEDS: ONDANSETRON PF 4 MG/2 ML VIAL. IVP PRN ×2 (00:42→07:30)
[2021-06-13] MEDS: PROCHLORPERAZINE 10 MG/2 ML VIAL. IV PRN (04:35)
[2021-06-13 05:06] LABS: BILIRUBIN,URINE NEG (NEG); CLARITY,URINE CLEAR; COLOR,URINE YELLOW; GLUCOSE,URINE NEG (NEG)
[2021-06-13 05:07] LABS: NITRITE,URINE NEG (NEG); UROBILINOGEN,URINE 0.2 mg/dL (0.2 mg/dL)
[2021-06-13 05:10] LABS: BACTERIA,URINE 0 /HPF (0-FEW); RBC,URINE OCC /HPF (0-2); SQUAMOUS EPITHELIAL CELL,UR OCC /LPF; WBC,URINE OCC /HPF (0-4)
[2021-06-13 05:21] VITALS: BP 101/62
[2021-06-13] MEDS: IV RINGERS SOLUTION,LACTATED 1,000 ML IV SCH (05:31)
--- NOTE | 2021-06-13 06:05 | NUR ---
Pt A&Ox4, appears anxious but drowsy from prior Ativan dose. Dr. Valenzuela saw pt last night, reorder home seizure medications. Pt frequently asking for vape pen, Nicotine patch provided. Pt had intermit N/V during shift, given IV Zofran and IV Compazine (works best) with some relief. Pt without seizure activity noted this shift.
--- NOTE | 2021-06-13 06:05 | CONS ---
REFERRING PHYSICIAN: Dr. Scott. REASON FOR CONSULTATION: Possible breakthrough seizure. HISTORY OF PRESENT ILLNESS: This is a 20-year-old right-handed male who was admitted through Emergency Room after he presented with 4 seizure activity this morning. The patient is known to me of having seizure disorder of unknown etiology. He was seen in 2019 and brain EEG revealed no significant abnormalities due to movement artifacts. The patient described seizure as a sudden onset of convulsions followed by confusion and tongue biting. He did not recall the event, but he stated he had three seizures at home and the fourth seizure was witnessed by ER physician. The patient has been on Keppra at 500 mg twice daily with good control of his seizure in the last several months. The patient stated he had a panic attack upon awakening this morning followed by seizure activities. He did bite his tongue, but he did not have any bowel or bladder dysfunctions. In Emergency Room, the patient was loaded with 2 grams of Keppra intravenously preceded by Ativan. The seizure did stop and he has not had any recurrent seizure since admission this afternoon. During the interview, the patient appears to be very anxious and provides information about his seizures. He denies any substance abuse, but he claimed that he has been compliant with his medication with Keppra at 500 twice daily. The patient did not have any recent head injuries or fall. Currently, the patient denies headaches, visual disturbances, but he does have nausea. He denies any neurological complaints. PAST MEDICAL HISTORY: Significant for anxiety and seizure disorder of unknown etiology as described above. PAST SURGICAL HISTORY: Negative. SOCIAL HISTORY: The patient is single. He denies alcohol drinking or illicit drug use, but he continues to use marijuana. FAMILY HISTORY: Noncontributory. REVIEW OF SYSTEMS: A 10-point review of system was performed as mentioned above in history of present illness, otherwise unremarkable. CURRENT MEDICATIONS: Include citalopram or Celexa 20 mg p.o. daily, Keppra 500 mg twice daily, nicotine patch, Compazine for 10 mg every 6 hours p.r.n. for nausea, Zofran 4 mg q. 6 hours p.r.n. for nausea and vomiting, lorazepam 1 mg IV for agitation and anxiety. PHYSICAL EXAMINATION: GENERAL: Well-developed, well-nourished male, not in acute distress. He weighs 78.4 kilos. VITAL SIGNS: Blood pressure 127/75, respiratory rate 20, pulse is 91 and regular, oxygen saturation 97%, and temperature 97.7. HEENT: Normocephalic, atraumatic, otherwise unremarkable. NECK: Supple, negative for carotid bruit, lymphadenopathy or thyromegaly. LUNGS: Clear to A and P. CARDIOVASCULAR: Regular rate and rhythm. Normal S1, S2. There is no S3, S4 or murmur. ABDOMEN: Soft. Bowel sounds positive. EXTREMITIES: Negative for cyanosis, clubbing or pedal edema. NEUROLOGIC: Mental status: The patient is alert and oriented x 3. The speech is fluent. There is no language dysfunction. Memory, judgment and abstracting thinkings are fair. The patient denies hallucination or delusion. Cranial nerves: Visual sanchez are full. The pupils are reactive to light and accommodation. The extraocular movements are intact. There is no nystagmus. There is no facial motor or sensory deficit. Hearing is intact bilaterally. The palate elevated symmetrically. Sternocleidomastoid muscles are powerful bilaterally. The patient shrugs his shoulders symmetrically, protrudes his tongue in the midline without fasciculation or atrophy. Motor examination: No focal muscle bulk wasting. The tone is normal. The strength is 4/5 throughout. Sensory examination: Normal pinprick, light touch, vibratory and position senses. Deep tendon reflexes are symmetric and active without pathologic responses. Gait not tested at this time. LABORATORY DATA: CBC revealed white blood cells of 23.4 thousand, hemoglobin 14.8, hematocrit 43.4, platelet count 225,000. Chemistry revealed sodium of 142, potassium 3.5, chloride 107, CO2 of 24, BUN 15, creatinine 1.5, glucose 71, calcium 8.7, magnesium is high at 3.7. Lactic acid is 1.1. Unfortunately, the patient did not have any urine drug screen and he did not have any test for blood Keppra level. IMPRESSION: 1. Possible breakthrough seizure, etiology uncertain; however, the patient stated he has been compliant with medication. The patient did not have a Keppra level ordered before he was loaded with Keppra intravenously and did not have a urine drug screen at this time. Therefore, the etiology of his seizure is unknown at this time; however, the patient has had history of generalized tonic-clonic seizure in the past. 2. Anxiety may have contributed to the recurrent breakthrough seizure. 3. Leukocytosis, probably secondary to seizure; however, no obvious systemic infections at this time. RECOMMENDATIONS: 1. We will start the patient with maintenance dose of Keppra at 500 mg p.o. b.i.d. 2. Treat underlying anxiety. 3. Repeat CBC in the morning. 4. The patient will be scheduled for electroencephalogram to rule out epileptic versus nonepileptic seizure. HECTOR DR: David TID: [id number]
[2021-06-13 06:06] LABS: BASO % 0 % (0-3); EOS % 0 % (0-3); HEMATOCRIT 40.6 % (39.0-53.0); LYMPH # 1.8 x10^3/uL (1.0-4.8); LYMPH % 13 % (24-48); MEAN CORPUSCULAR HEMOGLOBIN 30 pg (25-35); MEAN CORPUSCULAR HGB CONC 35 g/dL (31-37); MEAN CORPUSCULAR VOLUME 87 fL (79-100); MONO % 8 % (0-9); NEUT # 10.7 x10^3uL (1.8-7.7); NEUT % 79 % (31-73); PLATELET COUNT 173 x10^3/uL (140-400); RED BLOOD COUNT 4.67 x10^6/uL (4.30-5.70); RED CELL DISTRIBUTION WIDTH 12.8 % (11.5-14.5); WHITE BLOOD COUNT 13.5 x10^3/uL (4.0-11.0)
[2021-06-13 06:14] LABS: CALCIUM 8.6 mg/dL (8.5-10.1); CREATININE 3.7 mg/dL (0.7-1.3); GFR 21.3; POTASSIUM 4.1 mmol/L (3.5-5.1)
[2021-06-13] MEDS ORDERED: CITALOPRAM 20 MG TABLET. PO SCH (09:00)
[2021-06-13] MEDS: levETIRAcetam 500 MG TABLET PO SCH (09:16)
[2021-06-13 12:03] VITALS: BP 102/51
[2021-06-13] MEDS ORDERED: ONDA4VIA56 IVP (13:38)
[2021-06-13] MEDS ORDERED: ONDA4TAB7 PO (13:41)
--- NOTE | 2021-06-13 14:30 | NUR ---
PATIENT IS DISCHARGED HOME, DISCHARGE INSTRUCTIONS REVIEWED, PATIENT VERBALIZED UNDERSTANDING. PATIENT LEFT UNIT VIA AMBULATION ACCOMP BY THIS RN. PATIENT IS TAKEN HOME BY FAMILY MEMBER VIA PERSONAL VEHICLE.
--- NOTE | 2021-06-13 14:42 | DS ---
HOSPITAL COURSE: A 20-year-old male who came in with intractable seizure activity. The patient was on Keppra; however, he has had a known history of seizure activity of unknown etiology. The patient came in with a slightly low potassium of 3.2, carbon dioxide of blood hyperventilating at 10. The patient's BUN and creatinine were 13 and 1.8. Blood sugar at that time was 291, although came down to 99. The patient's magnesium level was 3.7. The patient was given IV fluids. He was given a bolus of Keppra 2 grams through the IV as well as Ativan, which controlled the seizure activity. He had some mild nausea thereafter, but that resolved. The patient was given additional fluids overnight. His BUN and creatinine actually went up to 27 and 3.[address] Valenzuela. Probably related to the bolus that was given to him of the Keppra in the emergency room. The patient right now is feeling excellent. No further seizure activity. We will have him discharged. He had some mild nausea this morning. Control was without any medication. He was given some Zofran. Continue on his Keppra 500 b.i.d. He will follow up with Dr. Valenzuela, noted neurologist, and make further evaluation on his BUN and creatinine. He is to get a lab test in the morning for BUN and creatinine and renal function as an outpatient. Also, may recheck his magnesium levels as well. The patient was instructed on his importance of not driving, not smoking marijuana and making further evaluation of overall health issues and repeating a blood count as well. IMPRESSION: Intractable seizure activity, leukocytosis, acute renal failure, possibly secondary to the infusion of the Keppra, hypermagnesemia. Continue to monitor the patient as an outpatient and make further evaluation as primary as well as with noted neurology, Dr. Valenzuela. ANGELIC MCMANUS: Freda TID: [id number]
--- NOTE | 2021-06-13 14:55 | PN ---
SUBJECTIVE: The patient denies any new medical neurological complaints. He has not had any recurrent seizures since. OBJECTIVE: GENERAL: Well-developed, well-nourished male in no acute distress. VITAL SIGNS: Blood pressure 101/62, respiratory rate 14, pulse is 83 and regular, temperature 98.5, oxygen saturation is 95% on room air. HEENT: Normocephalic, atraumatic, otherwise unremarkable. NECK: Supple, negative for carotid bruit, lymphadenopathy or thyromegaly. LUNGS: Clear to A and P. CARDIOVASCULAR: Regular rate and rhythm, normal S1, S2. ABDOMEN: Soft. Bowel sounds positive. There is no evidence of organomegaly or tenderness. EXTREMITIES: Negative for cyanosis, clubbing or pedal edema. NEUROLOGIC: Mental status: The patient is alert and oriented x 3. Speech is fluent. There is no language dysfunction. Memory, judgment and abstracting thinking is normal. The patient denies hallucination or delusion. Cranial nerves are intact. No focal motor or sensory deficit. Deep tendon reflexes were symmetric and active without pathologic responses. Gait not tested at this time. LABORATORY DATA: CBC revealed blood cells of 13.5 thousand, hemoglobin is 14, hematocrit 40.6, platelet count 173,000. Chemistry revealed sodium of 140, potassium 4.1, chloride 105, CO2 22, BUN 27, creatinine 3.7, up from 1.5 on the day of admission. Glucose 99, calcium 8.6. Urinalysis is negative for urinary tract infections. IMPRESSION: 1. Possible breakthrough seizure. 2. Dehydration versus renal failure, probably due to dehydration and possible side effects of Keppra. 3. History of seizure and anxiety disorder. RECOMMENDATIONS: 1. Continue with current medication and hydration and repeat BUN and creatinine. 2. Discontinue Keppra for now. 3. Treat the underlying anxiety. LENIN/TRESA DR: David TID: [id number]
--- NOTE | 2021-06-13 15:54 | HP ---
ADMIT DATE: 06/12/2021 HISTORY OF PRESENT ILLNESS: A 20-year-old right-handed male came in through the ER for seizures morning of admission. The patient had a long history of seizure activity of unknown etiology. The patient has had previous EEGs in the past. He describes seizures as a sudden onset of convulsions followed by confusion and tongue biting. Otherwise, the patient was seen in the Emergency Room. He has been on Keppra 500 b.i.d. with good control until just recently. The patient also had severe panic attacks, waking in the morning followed by seizure activity, bit his tongue but did not have any bowel or bladder dysfunction. The patient was loaded with 2 grams of Keppra in the IV as well as preceded by Ativan. The patient's seizures did stop. He did have an elevated white count of over 30,000 as well. The patient was admitted for further evaluation, showed some mild renal dysfunction with a creatinine at that time of approximately 1.5. The patient was admitted for further evaluation of his intractable seizure activity and renal dysfunction. PAST MEDICAL HISTORY: Anxiety, seizure disorder of unknown etiology. PAST SURGICAL HISTORY: Negative. SOCIAL HISTORY: The patient denies alcohol, drug use or illicit drug use, but continues to use marijuana. FAMILY HISTORY: Unremarkable. REVIEW OF SYSTEMS: Denies any headaches, visual change, blurred vision, double vision. Does have some nausea occasionally. The patient denies any chest pain, shortness of breath, abdominal pain. Denies any melena, hematochezia, hematemesis. CURRENT MEDICATIONS: Include Celexa 20 mg a day, Keppra 500 mg b.i.d., nicotine patch, Compazine 10 mg q. 6 h. for nausea, Zofran 4-6 hours as needed. PHYSICAL EXAMINATION: GENERAL: The patient is a pleasant young man, in no apparent distress, well developed, well nourished. VITAL SIGNS: Blood pressure 120/70, respiratory rate 20, pulse 90, afebrile, 97% on oxygen. Temperature afebrile. HEENT: Head was atraumatic, normocephalic. Eyes: PERRLA without jaundice. The mouth and throat were normal. NECK: Supple, no JVD or thyromegaly. LUNGS: Diminished but clear throughout. CARDIOVASCULAR: Regular sinus rhythm, S1, S2, without murmur, rub, thrill, or extra heart sound. ABDOMEN: Soft, nontender. No rebounding or guarding. Positive bowel sounds, no hepatosplenomegaly. EXTREMITIES: Without clubbing, cyanosis, nor edema. NEUROLOGIC: The patient was alert and oriented x 3. Speech fluent, spontaneous, appropriate. The patient had no problems with memory, judgment and abstract thinking were normal. Visual sanchez were full. Pupils were reactive to light and accommodation. No nystagmus was noted. No facial motor deficits noted. The patient's hearing was intact bilateral. The symmetrical. Sternocleidomastoid muscles were powerful and within normal range. There were no signs of any biting to the tongue itself and otherwise gait was unremarkable. His reflexes were symmetrical in both the upper and lower extremities without any pathological abnormalities. LABORATORY DATA: White count was over 30,000. The patient's chemistry showed sodium 142, potassium 3.5. BUN and creatinine 15 and 1.5. Glucose 71, calcium 8.7. Magnesium actually elevated at 3.7. Lactic acid 1.1. ASSESSMENT AND PLAN: The patient noted breakthrough seizure activity, anxiety attack, leukocytosis. The patient will be admitted for further evaluation and treatment. Also for his renal dysfunction, I will make further evaluation with IV fluids, consult with cardiology and make further evaluation on him as indicated. TABATHA/TRESA/JUANA DR: TABATHA/xavier TID: [id number]
[2021-06-18] MEDS ORDERED: ESCITALOPRAM OX20 MG PO (13:27)
[2021-06-18] MEDS ORDERED: LORA-254 PO (13:27)
== END 2021-06-13 14:15 | disposition home or self-care (01) ==
LOC: ER 10:02 → UNDOADMOB 16:21 → 1 SOUTH 16:21
PROVIDERS: ADMIT Family Medicine; ATTEND Family Medicine
DX: G40.909 Epilepsy, unspecified, not intractable, without status epilepticus (principal); E86.0 Dehydration; D72.829 Elevated white blood cell count, unspecified; F41.0 Panic disorder [episodic paroxysmal anxiety]; F41.1 Generalized anxiety disorder; E83.41 Hypermagnesemia; N17.9 Acute kidney failure, unspecified; Z79.899 Other long term (current) drug therapy
CPT/HCPCS: 36415; 70450; 71045; 80048; 80053; 81001; 83605; 83735; 84443; 85007; 85025; 87040; 93005; 96361; 96365; 96366; 96375; 96376; 99284; G0378; J0780; J1953; J2405; J7120; G0379

== ENCOUNTER 2021-06-14 19:01 | Inpatient (IN) | payer OTHER ==
[~2021-06-14] VITALS: Ht 180.3 cm; Wt 78.7 kg
[~2021-06-14 19:01] MED LIST: ESCI10TA90 PO; LEVE500T6 PO; ONDA4TAB7 PO; ONDA4VIA56 IVP
[2021-06-14] MEDS ORDERED: ONDANSETRON ODT 4 MG TAB.RAPDIS PO ONE (20:00)
[2021-06-14] MEDS ORDERED: PROMETHAZINE 25 MG TABLET. PO ONE (20:15)
--- NOTE | 2021-06-14 20:22 | PHYS DOC ---
Past History Past Medical History: Anxiety, Seizure, Other Additional Past Medical Histor: meningitis as infant, seizures Past Surgical History: No Surgical History Smoking: Non-smoker Alcohol Use: None Drug Use: Marijuana Adult General Chief Complaint Chief Complaint: NAUSEA/VOMITING/DIARRHEA HPI HPI Patient is a 20-year-old male who presents with mom for chief complaint of nausea and vomiting. States that he has a past medical history significant for seizures and on Keppra who was just discharged from the hospital about 4 days ago after coming into the hospital post seizure and elevated creatinine. States he was discharged a few days ago and since then has had some nausea and vomiting. Denies any recent traumas, travels, fevers, chest pain, shortness of breath, abdominal pain, dysuria, hematuria or blood in the stool or diarrhea. Denies any alcohol use but does state he smokes marijuana daily. States he is t aking his Keppra daily. Review of Systems Review of Systems Review of systems otherwise unremarkable except noted in HPI Current Medications Current Medications Current Medications Medications (Trade) Dose Ordered Sig/Shirley Start Time Stop Time Status Last Admin Dose Admin Ondansetron HCl (Zofran Odt) 8 mg 1X ONCE 06/14/21 20:00 06/14/21 20:04 DC Promethazine HCl (Phenergan) 25 mg 1X ONCE 06/14/21 20:15 06/14/21 20:16 Allergies Allergies Allergies Coded Allergies Type Severity Reaction Last Updated Verified No Known Drug Allergies 04/26/21 No Physical Exam Physical Exam Constitutional: Well developed, well nourished, no acute distress, non-toxic appearance. [] HENT: Normocephalic, atraumatic, oropharynx moist, no oral exudates, nose normal. [] Eyes: conjunctiva normal, no discharge. [] Neck: Normal range of motion, no tenderness, supple, no stridor. [] Cardiovascular:Heart rate regular rhythm, no murmur [] Lungs & Thorax: Bilateral breath sounds clear to auscultation [] Abdomen: soft, no tenderness, no masses, no pulsatile masses. [] Skin: Warm, dry, no erythema, no rash. [] Extremities: No tenderness, ROM intact, no edema. [] Neurologic: Alert and oriented X 3, no focal deficits noted. [] Psychologic: Affect normal, judgement normal, mood normal. [] EKG EKG [] Radiology/Procedures Radiology/Procedures [] Heart Score C/O Chest Pain: No Risk Factors: Risk Factors: DM, Current or recent (<one month) smoker, HTN, HLP, family history of CAD, obesity. Risk Scores: Risk Factors: DM, Current or recent (<one month) smoker, HTN, HLP, family history of CAD, obesity. Course & Med Decision Making Course & Med Decision Making Patient is a 20-year-old male who presents with mom for chief complaint of nausea and vomiting Laboratory analysis not concerning. Physical exam noted above. Patient started on IV fluid resuscitation. Given nausea medicine. Laboratory analysis notable for significant increase in creatinine over last visit to greater than 6. [] Dragon Disclaimer Dragon Disclaimer This electronic medical record was generated, in whole or in part, using a voice recognition dictation system. Departure Departure: Impression: Primary Impression: MEMO (acute kidney injury) Additional Impression: Rhabdomyolysis Disposition: 02 [facility]ORT TERM [facility] Admitting Physician: Caroline Nguyễn Condition: STABLE Referrals: NON,STAFF (PCP) NIRMAL DOMÍNGUEZ MD Problem Qualifiers NAILA COLES MD Jun 14, 2021 20:22
[2021-06-14] MEDS ORDERED: IV RINGERS SOLUTION,LACTATED 1,000 ML IV ONE ×2 (20:30→22:30)
[2021-06-14 20:48] LABS: BASO % 0 % (0-3); EOS % 0 % (0-3); HEMOGLOBIN 14.5 g/dL (13.0-17.5); LYMPH # 1.5 x10^3/uL (1.0-4.8); LYMPH % 14 % (24-48); MEAN CORPUSCULAR HEMOGLOBIN 31 pg (25-35); MEAN CORPUSCULAR HGB CONC 35 g/dL (31-37); MEAN CORPUSCULAR VOLUME 86 fL (79-100); MONO # 0.8 x10^3/uL (0.0-1.1); MONO % 7 % (0-9); NEUT # 8.5 x10^3uL (1.8-7.7); NEUT % 78 % (31-73); PLATELET COUNT 176 x10^3/uL (140-400); RED BLOOD COUNT 4.75 x10^6/uL (4.30-5.70); RED CELL DISTRIBUTION WIDTH 12.9 % (11.5-14.5); WHITE BLOOD COUNT 10.8 x10^3/uL (4.0-11.0)
[2021-06-14 20:58] LABS: CALCIUM 8.8 mg/dL (8.5-10.1); CREATININE 6.5 mg/dL (0.7-1.3); GFR 11.1; POTASSIUM 3.8 mmol/L (3.5-5.1)
[2021-06-14 21:04] LABS: ALBUMIN/GLOBULIN RATIO 1.3 (1.0-1.7); TOTAL BILIRUBIN 0.6 mg/dL (0.2-1.0)
--- NOTE | 2021-06-14 22:41 | RAD ---
CT abdomen and pelvis without contrast: Reason for examination: Nausea, vomiting and bloating. Helical images were obtained through the abdomen pelvis with no intravenous or oral contrast administ ered. Reconstruction was performed in sagittal and coronal planes. Exposure: One or more of the following individualized dose reduction techniques were utilized for thi s examination: 1. Automated exposure control 2. Adjustment of the mA and/or kV according to patient size 3. Use of iterative reconstruction technique. The lung bases are clear. The heart size is normal with no pericardial effusion. The liver and spleen both appear to be prominent with the liver measuring 19.8 cm in greatest dimensi on and the spleen measuring 13.9 cm in greatest dimension. No focal hepatic or splenic lesions are se en. No abnormality seen at the gallbladder, adrenal glands or pancreas. The abdominal aorta and infer ior vena cava show no gross abnormalities. No abnormality seen at the appendix. The colon shows no di verticulosis, diverticulitis or colitis. The small intestinal tract shows no abnormal dilatation or w all thickening and no obstruction. The stomach contains a moderate amount fluid but no obstruction is evident. The kidneys show no renal masses, renal calculi, hydronephrosis or evidence of obstructive uropathy. The bladder is distended with no wall thickening. No abnormality seen at the prostate gland or semina l vesicles. No free fluid or free air is seen in the abdomen or pelvis. No acute bony abnormalities a re evident. IMPRESSION: Mild hepatosplenomegaly without focal lesions. No other focal abnormality seen in the abdomen or pelvis. Electronically signed by: Madison Kolb MD (06/14/2021 10:39 PM) ROLA
[2021-06-14 23:02] LABS: BILIRUBIN,URINE NEG (NEG); CLARITY,URINE CLEAR; COLOR,URINE YELLOW; GLUCOSE,URINE NEG (NEG); UROBILINOGEN,URINE 0.2 mg/dL (0.2 mg/dL)
[2021-06-14 23:03] LABS: BACTERIA,URINE 0 /HPF (0-FEW); NITRITE,URINE NEG (NEG); SQUAMOUS EPITHELIAL CELL,UR OCC /LPF
[2021-06-15] MEDS ORDERED: IV RINGERS SOLUTION,LACTATED 1,000 ML IV ONE ×2 (03:30→06:00)
[2021-06-15 05:19] LABS: CALCIUM 8.6 mg/dL (8.5-10.1); GFR 12.2; POTASSIUM 3.6 mmol/L (3.5-5.1)
[2021-06-15] MEDS ORDERED: LOPERAMIDE 2 MG CAPSULE PO ONE (11:30)
[2021-06-15 12:48] LABS: CALCIUM 8.8 mg/dL (8.5-10.1); CREATININE 5.8 mg/dL (0.7-1.3); GFR 12.7; POTASSIUM 4.1 mmol/L (3.5-5.1)
--- NOTE | 2021-06-15 16:09 | RAD ---
Renal ultrasound complete: Reason for examination: Elevated creatinine. No abnormality seen at the inferior vena cava. The abdominal aorta is normal in course and caliber me asuring 1.7 cm in greatest dimension. Right kidney measures 12.5 x 6.2 x 5.3 cm in greatest dimension with good vascular flow. There is nor mal cortical medullary differentiation with no mass or hydronephrosis. The left kidney measures 12.7 x 6.7 x 7.5 cm in greatest dimension with good vascular flow. There is normal cortical medullary differentiation with no mass or hydronephrosis. No abnormality seen at the bladder. Prevoid volume is 482 cubic centimeters. Bilateral ureteral jets are seen. Incidental note is made of an enlarged spleen at 14 cm. IMPRESSION: No abnormality seen at the kidneys or bladder. Enlarged spleen at 14 cm. Electronically signed by: Madison Kolb MD (06/15/2021 4:06 PM) ROLA
[2021-06-15 18:08] VITALS: BP 130/83
--- NOTE | 2021-06-15 18:16 | HP ---
ADMIT DATE: 06/15/2021 HISTORY OF PRESENT ILLNESS: The patient is a 20-year-old male patient who presented to the Emergency Room with a complaint of nausea and vomiting that has been going on since 4 days ago. He did also complain of diarrhea, but denied any abdominal pain. He is known to have seizure disorder diagnosed about a year ago for which he was started on Keppra. He was discharged from the hospital about 4 days ago after coming into the hospital with both seizures and elevated creatinine. States he was discharged a few days ago and since then has had some nausea and vomiting. Denied any recent trauma, travel, fever, chest pain, shortness of breath, abdominal pain. He was evaluated in the Emergency Room and his blood count was unremarkable; however, his creatinine has risen to 6.5. Apparently, his creatinine was normal on 04/17/2021; at that time, which was 1.1, and has been fluctuating up and down. His creatinine when he was discharged was 3.7 and when he arrived to this unit it was 6.5 mg/dL. PAST MEDICAL HISTORY: Significant for seizure disorder diagnosed a year ago for which started on Keppra. He has also history of viral meningitis when he was only 6 months old. He apparently has had seizures almost once a month. PAST SURGICAL HISTORY: Unremarkable. MEDICATION: He is only on Keppra. ALLERGIES: He has no known drug allergies. FAMILY HISTORY: He has 2 sisters; his younger sister has seizures. One brother and older sister are healthy. His father is healthy at the age of 39. Mother is 36 years old and has type 2 diabetes. SOCIAL HISTORY: He quit smoking about a year ago. Does not drink alcohol or use any recreational drugs. He works at [employer]. PHYSICAL EXAMINATION: GENERAL: On arrival to the emergency room, he looked well and was clearly in no apparent respiratory distress. No pallor, jaundice, cyanosis, or thyromegaly. No jugular venous distention. No limb edema. VITAL SIGNS: His heart rate was 71, blood pressure was 123/73, temperature was 98.9, respiratory rate was 20 and oxygen saturation was 100% on room air. HEAD, EYES, EARS, NOSE, AND THROAT: Normocephalic, atraumatic. NECK: Supple. HEART: Showed normal first and second heart sounds; no gallop, rub or murmur. CHEST: Shows central trachea, equal bilateral chest expansion and air entry, vesicular breath sounds. No crepitation or rhonchi. ABDOMEN: Distended, soft, nontender. NEUROLOGIC: He was grossly intact. LABORATORY DATA: On arrival to the Emergency Room showed a white cell count of 10,800, hemoglobin 14.5, hematocrit 41, MCV 86 and platelet count of 176 with a normal white cell count and platelets. His serum sodium on arrival was 140, potassium 3.8, chloride 103, bicarbonate 25, anion gap of 12, BUN 36, creatinine 6.5. Estimated GFR was 6.11, blood glucose was 107, calcium was 8.8. Total bilirubin, AST, ALT, alkaline phosphatase were normal. Total protein 7, albumin 4. His creatinine kinase was 7082. Urinalysis showed the urine was yellow, clear with a pH of 5, specific gravity of 1.005. The urine was negative for protein, glucose and there was trace of ketones, moderate amount of blood, negative for nitrite, negative leukocyte esterase, 1-2 rbc's, 1-4 wbc's and no bacteria. He has had a CT scan of the abdomen, which showed mild hepatosplenomegaly without focal lesions. No other focal abnormality seen in the abdomen. His liver is prominent with the liver measuring 19.8 cm in greatest dimension and the spleen measuring 13.9 cm in greatest dimension. No focal hepatic or splenic lesions are seen. No abnormality seen in the gallbladder, adrenal glands or pancreas. The abdominal aorta and inferior vena cava shows no gross abnormalities. No abnormality seen at the appendix. The colon shows no diverticulosis, diverticulitis or colitis. The small intestinal tract shows no abnormal dilatation or wall thickening or obstruction. The stomach contained a moderate amount of fluid, but no obstruction. The kidneys show no renal masses, no renal calculi, hydronephrosis or evidence of obstructive uropathy. The abdominal ultrasound showed no abnormality seen in the kidneys or bladder. Enlarged spleen at 14 cm. ASSESSMENT AND PLAN: In summary, this is a 20-year-old male patient who presented with acute kidney injury, likely due to rhabdomyolysis induced by Keppra. He has also had hepatosplenomegaly, seizure disorder. My plan is to continue with IV fluid, continue to monitor his lab work and if the kidney function does not improve, then we will transfer him to [facility] once bed becomes available for further evaluation and treatment. JUNAID DR: Saturnino TID: [id number]
[2021-06-15] MEDS: IV NORMAL SALINE 1,000ML 1,000 ML IV SCH (18:33)
[2021-06-15 23:52] VITALS: BP 126/79
[2021-06-16] MEDS: IV NORMAL SALINE 1,000ML 1,000 ML IV SCH ×4 (00:16→17:26)
[2021-06-16] MEDS: ONDANSETRON PF 4 MG/2 ML VIAL. IVP PRN ×2 (00:17→14:47)
--- NOTE | 2021-06-16 02:04 | CONS ---
NEUROLOGY CONSULTATION REFERRING PHYSICIAN: Dr. Nguyễn. REASON FOR CONSULTATION: History of seizure disorder with acute renal injury and dehydration. HISTORY OF PRESENT ILLNESS: This is a 20-year-old right-handed male who was admitted today after he presented with 3-4 days history of nausea and vomiting. The patient was discharged 3 days ago after he was admitted for breakthrough seizures. According to the patient, he had 3 seizures at home and 1 seizure witnessed in the Emergency Room. The patient was loaded with 2 grams of Keppra. He did not have any seizures since hospitalization; however, he was very dehydrated and having elevated BUN and creatinine. Currently, the patient denies headaches, visual disturbances, nausea, vomiting, chest pain, shortness of breath or palpitation, dysarthria, dysphagia, weakness or paresthesia. Initial abdomen CT scan revealed evidence of hepatosplenomegaly, otherwise unremarkable. Renal ultrasound was unremarkable as well. The patient was admitted for further evaluation and hydration. He was found to have a creatinine of 6.5 with elevated BUN at 36 along with increased creatinine kinase at 7082. Therefore, the patient was admitted with a diagnosis of rhabdomyolysis. PAST MEDICAL HISTORY: Seizure disorder and diagnosed a year ago of unknown etiology with history of viral meningitis when he was at age of 6 months. The patient has anxiety disorder as well. PAST SURGICAL HISTORY: Unremarkable. FAMILY HISTORY: Positive for a seizure as his sister had a seizure and father is healthy at age of 39 and mother is 36 and has diabetes mellitus type 2. SOCIAL HISTORY: The patient is single. He quit smoking a year ago. He denies alcohol drinking or illicit drug use. REVIEW OF SYSTEMS: A 10-point review of system was performed as mentioned above in the history of present illness. CURRENT MEDICATIONS: Ativan 2 mg p.r.n. IV every 4 hours p.r.n. for seizure and anxiety and IV fluid of sodium chloride at 150 mL per hour, Zofran 4 mg q.4 hours p.r.n. IV for nausea and vomiting. PHYSICAL EXAMINATION: GENERAL: He is a well-developed, well-nourished male in no acute distress. He weighs 78.8 kilos. VITAL SIGNS: Blood pressure 130/83, respiratory rate 20, pulse is 62, temperature 98.2, oxygen saturation 99% on room air. HEENT: Normocephalic, atraumatic, otherwise unremarkable. NECK: Supple, negative for carotid bruit, lymphadenopathy or thyromegaly. LUNGS: Clear to A and P. CARDIOVASCULAR: Regular rate and rhythm, normal S1, S2. There is no S3, S4 or murmur. ABDOMEN: Soft. Bowel sounds positive. EXTREMITIES: Negative for cyanosis, clubbing or pedal edema. NEUROLOGIC: Mental status: The patient is alert and oriented x3. The speech is aphasic. There is no language dysfunction. Memory, judgment and abstracting thinkings are normal. The patient denies hallucination or delusion. Cranial nerves: Visual sanchez are full. The pupils are reactive to light and accommodation. The extraocular movements are intact. There is no nystagmus. There is no facial motor or sensory deficits. Hearing is intact bilaterally. The palate is elevated symmetrically. Sternocleidomastoid muscles are powerful bilaterally. The patient shrugs his shoulders symmetrically, protrudes his tongue in the midline without fasciculation or atrophy. Motor Examination: No focal muscle bulk wasting. The tone is normal. The strength is 5/5 throughout. Sensory examination: Normal pinprick, light touch, vibratory and position senses. Deep tendon reflexes were symmetric and active without pathology responses. Gait and coordination were normal. LABORATORY DATA: CBC revealed white blood cells of 10.8 thousand, hemoglobin 14.5, hematocrit 41, platelet count 176,000. Chemistry revealed sodium of 143, potassium 4, chloride 107, CO2 of 26, BUN 30 dropped from 36 and creatinine 5.8 dropped from 6.5. Alkaline phosphatase is 6054 dropped from [address] scan and renal ultrasound as mentioned above in the history of present illness. IMPRESSION: 1. Rhabdomyolysis resulted in acute kidney injuries probably due to overdosing of Keppra. 2. History of seizure disorder. No recurrent seizures since he has been off Keppra. 3. Anxiety disorder. RECOMMENDATIONS: 1. Aggressive hydration for rhabdomyolysis. 2. Continue with current management initiated by Dr. Nguyễn. LENIN/CHRIS DR: LENIN/xavier TID: [id number]
[2021-06-16 06:06] VITALS: BP 128/81
[2021-06-16 06:45] LABS: HEMATOCRIT 35.8 % (39.0-53.0); HEMOGLOBIN 12.5 g/dL (13.0-17.5); RED BLOOD COUNT 4.18 x10^6/uL (4.30-5.70); WHITE BLOOD COUNT 7.2 x10^3/uL (4.0-11.0)
[2021-06-16 07:05] LABS: ALBUMIN/GLOBULIN RATIO 1.2 (1.0-1.7); CALCIUM 8.2 mg/dL (8.5-10.1); GFR 19.4; POTASSIUM 3.4 mmol/L (3.5-5.1); TOTAL BILIRUBIN 0.5 mg/dL (0.2-1.0); TOTAL PROTEIN 5.5 g/dL (6.4-8.2)
[2021-06-16 11:51] VITALS: BP 145/81
[2021-06-16] MEDS ORDERED: NICOTINE 21MG PATCH. TD ONE (14:45)
[2021-06-16 16:29] VITALS: BP 145/87
[2021-06-16 20:13] VITALS: BP 137/86
--- NOTE | 2021-06-16 22:02 | PN ---
DATE: 06/16/2021 REFERRING PHYSICIAN: Dr. Nguyễn. SUBJECTIVE: The patient denies any new medical or neurological complaints. He has not had any seizures since admission. OBJECTIVE: GENERAL: Well-developed, well-nourished male in no acute distress. VITAL SIGNS: Blood pressure 128/81, respiratory rate 16, pulse is 65 and regular, temperature 98.4, oxygen saturation 99% on room air. HEENT: Normocephalic, atraumatic, otherwise unremarkable. NECK: Supple, negative for carotid bruit, lymphadenopathy or thyromegaly. LUNGS: Clear to A and P. CARDIOVASCULAR: Regular rate and rhythm, normal S1, S2. ABDOMEN: Soft. Bowel sounds positive. EXTREMITIES: Negative for cyanosis, clubbing or edema. NEUROLOGIC: Normal mental status and intact cranial nerves. Motor examination: No focal muscle bulk wasting. The tone is normal. The strength was 5/5 throughout. Sensory examination revealed normal pinprick, light touch, vibratory and position senses. Deep tendon reflexes were symmetric and active without pathologic responses. Gait and coordination are normal. LABORATORY DATA: CBC revealed white blood cells of 7.2, hemoglobin 12.5, hematocrit 35.8, platelet count 166,000. Chemistry reveals sodium 142, potassium 3.4, chloride 108, CO2 of 26, BUN 20, creatinine 4, glucose is 89, calcium 8.2, alkaline phosphatase is 4514, down from 7082 on admission. IMPRESSION: 1. Rhabdomyolysis resulted in acute kidney injury, probably due to overdose or side effects of Keppra. 2. Anxiety disorder. 3. Seizure disorder -- stable. RECOMMENDATIONS: We will continue with current management initiated by Dr. Nguyễn along with aggressive hydration. The patient is neurologically stable and making good progress. CLAUDETTE DR: David TID: [id number]
[2021-06-16 23:05] VITALS: BP 134/75
--- NOTE | 2021-06-17 00:35 | PN ---
DATE: 06/16/2021 SUBJECTIVE: The patient is resting, slightly propped up in bed, in no apparent distress, awake, alert. On questioning him, he denied any complaint. Nursing staff did not voice any concerns. PHYSICAL EXAMINATION: GENERAL: When I examined him, he looked well and was clearly in no apparent respiratory distress. No pallor, jaundice, cyanosis or thyromegaly. No jugular venous distention. No lower limb edema. VITAL SIGNS: Her heart rate was 78, blood pressure was 145/81, temperature was 98.4, respiratory rate was 18 and oxygen saturation was 99%. HEAD, EYES, EARS, NOSE AND THROAT: Normocephalic, atraumatic. NECK: Supple. HEART: Showed normal first and second heart sounds, no gallop or murmur. CHEST: Clear to auscultation, no crepitation or rhonchi. ABDOMEN: Distended, soft, nontender. NEUROLOGIC: He was grossly intact. His intake was 3900, no output was recorded. LABORATORY DATA: His lab work this morning showed a white cell count of 7200, hemoglobin 12.5, hematocrit 36, MCV 86 and platelet count of 166,000. Serum sodium 142, potassium 3.4, chloride 108, bicarbonate 26, anion gap of 8, BUN 20, creatinine. Estimated GFR was 19 mL per minute. His glucose was 89, calcium was 8.2. Total bilirubin, AST, ALT, alkaline phosphatase were normal. His CK was 4500. Total protein was 5.5, albumin 3. ASSESSMENT: 1. Acute kidney injury. 2. Rhabdomyolysis. 3. Seizure disorder. 4. Hepatosplenomegaly. PLAN: My plan is to continue with aggressive rehydration. The patient has lorazepam 2 mg IV every 4 hours as needed for breakthrough seizures. Apparently, the patient was seen by Dr. Valenzuela who did not recommend any seizure treatment for now. I will repeat his labs again tomorrow. Once his creatinine is within normal range, we will discharge him home. PARVEZ/MYNOR DR: PARVEZ/xavier TID: [id number]
[2021-06-17] MEDS: IV NORMAL SALINE 1,000ML 1,000 ML IV SCH ×4 (02:15→23:05)
[2021-06-17] MEDS ORDERED: ONDANSETRON PF 4 MG/2 ML VIAL. IVP PRN (02:15)
[2021-06-17] MEDS: ONDANSETRON PF 4 MG/2 ML VIAL. IVP PRN ×2 (02:46→15:25)
[2021-06-17 05:17] VITALS: BP 132/82
[2021-06-17 07:31] LABS: CALCIUM 8.8 mg/dL (8.5-10.1); CREATININE 2.4 mg/dL (0.7-1.3); POTASSIUM 3.6 mmol/L (3.5-5.1)
[2021-06-17] MEDS: NICOTINE 21MG PATCH. TD SCH (08:11)
[2021-06-17 10:22] VITALS: BP 151/91
[2021-06-17 15:18] VITALS: BP 152/94
[2021-06-17] MEDS: ACETAMINOPHEN 500 MG TABLET PO PRN ×2 (15:25→21:00)
[2021-06-17 17:25] LABS: CALCIUM 8.7 mg/dL (8.5-10.1); GFR 43.3; POTASSIUM 3.5 mmol/L (3.5-5.1)
[2021-06-17 19:53] VITALS: BP 151/72
--- NOTE | 2021-06-17 22:31 | PN ---
DATE: 06/17/2021 SUBJECTIVE: The patient is resting flat, comfortably in bed, in no apparent distress. On questioning him, he denied any complaint. Nursing staff did not voice any concerns, stated that he had an uneventful night. PHYSICAL EXAMINATION: GENERAL: When I examined him, he looked well and was clearly in no apparent respiratory distress. VITAL SIGNS: His heart rate was 65, blood pressure is 132/82, temperature 98.4, respiratory rate was 14 and oxygen saturation was 97%. Rest of exam is stable. His intake is 3900. No output was recorded. LABORATORY DATA: His lab work this morning showed a serum sodium 143, potassium 3.6, chloride 109, bicarbonate 27, anion gap of 7, BUN 12, creatinine 2.4. Estimated GFR was 35 mL per minute. His glucose was 88, calcium was 8.8 and CK was 3791. ASSESSMENT: 1. Acute kidney injury, improving. His creatinine is coming down from 6.5-2.4. 2. Rhabdomyolysis with CK trending down. 3. Seizure disorder. His Keppra was discontinued. He is currently not on any anti-seizure medication; however, will have Ativan available for any breakthrough seizures. 4. Hepatosplenomegaly, the cause of which is not very clear. His hepatitis serology are all negative. PLAN: My plan is to continue with IV fluid. We will repeat his labs again this afternoon and also await the evaluation by Dr. Valenzuela to see if he should reinstitute his Keppra. SWETHA DR: Saturnino TID: [id number]
[2021-06-17 23:20] VITALS: BP 154/86
--- NOTE | 2021-06-17 23:35 | PN ---
SUBJECTIVE: The patient denies any new medical or neurological complaints. He has not had any recurrent seizure. However, the patient stated he had a panic attack that lasted 3-5 minutes and he presented at that time with a tremor of the upper extremities, tachycardia, and anxiety. The patient did not lose consciousness, bite tongue, or have a seizure-like activities. OBJECTIVE: GENERAL: Well-developed, well-nourished male in no acute distress. VITAL SIGNS: Blood pressure 151/91, respiratory rate 16, pulse is 53, oxygen saturation is 99% on room air, temperature 97.9. HEENT: Normocephalic, atraumatic, otherwise unremarkable. NECK: Supple, negative for carotid bruit, lymphadenopathy or thyromegaly. LUNGS: Clear to A and P. CARDIOVASCULAR: Regular rate and rhythm. Normal S1, S2. ABDOMEN: Soft. Bowel sounds positive. EXTREMITIES: Negative for cyanosis, clubbing, or pedal edema. NEUROLOGIC: Normal mental status and intact cranial nerves. There is no focal motor or sensory deficits. Deep tendon reflexes were symmetric and active without pathology responses. Gait and coordination are normal. LABORATORY DATA: CBC revealed white blood cells of 7.2 thousand, hemoglobin 12.5, hematocrit 35.8, platelet count 166,000. Chemistry revealed a sodium of 143, potassium 3.6, chloride 109, CO2 27, BUN 12, creatinine 2.4, glucose 99, and calcium 8.8. Creatinine kinase is down from 4514 yesterday to 2791. Hepatitis A and B IgM antibodies, hepatitis C IgG antibodies are nonreactive. COVID-2 RNA is negative. IMPRESSION: 1. Rhabdomyolysis/renal kidney injury likely due to side effects or overdose of Keppra. 2. History of seizure, etiology uncertain. 3. Anxiety disorder. 4. Splenohepatomegaly of unknown etiology. RECOMMENDATIONS: 1. Continue with current management initiated by Dr. Nguyễn with aggressive hydration. 2. Continue with Ativan p.r.n. for anxiety attack or panic attack. 3. We will repeat EEG on outpatient basis. LENIN/HARPAL DR: LENIN/xavier TID: [id number]
[2021-06-18] MEDS: IV NORMAL SALINE 1,000ML 1,000 ML IV SCH ×2 (05:36→12:25)
[2021-06-18 05:46] VITALS: BP 119/70
[2021-06-18] MEDS: ONDANSETRON PF 4 MG/2 ML VIAL. IVP PRN ×2 (06:05→11:50)
[2021-06-18 07:30] LABS: CALCIUM 8.6 mg/dL (8.5-10.1); CREATININE 1.7 mg/dL (0.7-1.3); GFR 52.2; POTASSIUM 3.1 mmol/L (3.5-5.1)
[2021-06-18] MEDS: NICOTINE 21MG PATCH. TD SCH (09:00)
[2021-06-18 11:39] VITALS: BP 153/89
[2021-06-18] MEDS ORDERED: ESCITALOPRAM OX20 MG PO (13:27)
[2021-06-18] MEDS ORDERED: LORA-254 PO (13:27)
[2021-06-18] MEDS ORDERED: ONDANSETRON ODT 4 MG TAB.RAPDIS PO PRN (13:45)
--- NOTE | 2021-06-18 21:26 | PN ---
DATE: 06/18/2021 REFERRING PHYSICIAN: Dr. Nguyễn SUBJECTIVE: The patient had one anxiety attack this morning and required 2 mg of Ativan intravenously. He denies any new medical or neurological complaints. He has not had any seizure activities since admission; however, the patient described his panic attack as tachycardia and trembling of the hands without loss of consciousness or post-event confusion or disorientation. OBJECTIVE: GENERAL: A well-developed, well-nourished male in no acute distress. VITAL SIGNS: Blood pressure 119/70, respiratory rate 18, pulse is 65, temperature 97.6, oxygen saturation 99% on room air. HEENT: Normocephalic, atraumatic, otherwise unremarkable. NECK: Supple, negative for carotid bruit, lymphadenopathy or thyromegaly. LUNGS: Clear to A and P. CARDIOVASCULAR: Regular rate and rhythm, normal S1, S2. ABDOMEN: Soft. Bowel sounds positive. EXTREMITIES: Negative for cyanosis, clubbing or edema. NEUROLOGIC: Mental status: The patient is alert and oriented x 3. Speech is clear. There is no language dysfunction. Cranial nerves are intact. No focal motor or sensory deficits. Deep tendon reflexes were symmetric and active without pathology responses. Gait and coordination are normal. LABORATORY DATA: Chemistry revealed sodium of 145, potassium 3.1, chloride 109, CO2 27, BUN 7, creatinine 1.7, creatine kinase is 1198. IMPRESSION: 1. Rhabdomyolysis, probably due to side effects or overdose of Keppra --corrected. 2. History of a seizure disorder, etiology is uncertain. 3. Anxiety disorder. RECOMMENDATIONS: 1. Treat the underlying anxiety disorder. Continue with Lexapro and increase it to 30 mg daily. 2. Continue with Ativan at 1 mg p.o. three times daily. 3. We will arrange for electroencephalogram on outpatient basis if EEG is negative for epileptic discharges, then we will refer patient to [facility] for a prolonged video monitoring electroencephalogram: The patient to follow up with me in the office next week. The patient was advised not to drive for now. If the patient have weakness, epileptic seizure, we will start him on Zonegran at [address] mg [address]MA [address]: David TID: [id number]
--- NOTE | 2021-06-18 21:56 | DS ---
DATE OF DISCHARGE: 06/18/2021 HOSPITAL COURSE: The patient is a 20-year-old male patient who was admitted through the Emergency Room on 06/15/2021 with complaint of nausea and vomiting that has been going on for 4 days prior to admission, also complained of diarrhea, but denies any abdominal pain. He is known to have seizure disorder diagnosed about a year ago for which he was started on Keppra, where he was admitted with seizure disorder and elevated creatinine. On the day of admission, his creatinine was 6.5; his creatinine was normal on 04/17/2021, at that time it was 1.1 mg/dL. He was found also to have rhabdomyolysis. His CK was elevated at 7082. We treated him aggressively with IV fluid. He received 3 liters of fluid on the day of admission. Continue with 150 mL per hour of normal saline and his creatinine has steadily improved, such that his creatinine today came down from 6.5 to 1.7. His CK also came down from 7000 to 1200. He did have 1 episode of vomiting this morning, his potassium was low, so we will replenish that, and he was seen by Dr. Valenzuela who recommended to discharge him on Ativan 1 mg 3 times a day and to make an appointment for him to be seen at his office for an outpatient EEG. I also recommended that the patient should follow up with his primary care physician and I spoke at length with his mother as he has also hepatosplenomegaly that is unexplained to me. I did hepatitis serology and his hepatitis A IgM antibody, hepatitis B surface antigen, hepatitis B core IgM antibody, and hepatitis C IgG antibody were all negative. PHYSICAL EXAMINATION: GENERAL: When I saw him today, he was sitting on the edge of the bed comfortably, in no apparent respiratory distress. There was no pallor, jaundice, cyanosis or thyromegaly. No jugular venous distention. No limb edema. VITAL SIGNS: His heart rate was 63, blood pressure 153/89, temperature was 98.4, respiratory rate was 18 and oxygen saturation was 98% on room air. HEAD, EYES, EARS, NOSE AND THROAT: Normocephalic, atraumatic. NECK: Supple. HEART: Showed normal first and second heart sounds, no gallop or murmur. CHEST: Clear to auscultation, no crepitation or rhonchi. ABDOMEN: Distended, soft, nontender. NEUROLOGIC: He was grossly intact. LABORATORY DATA: His lab work this morning showed his most recent white cell count was 7200, hemoglobin 12.5, hematocrit 35.8, MCV 86 and platelet count of 166,000. Serum sodium 145, potassium 3.1, chloride 109, bicarbonate 27, anion gap of 9, BUN 7, creatinine 1.7. Estimated GFR was 52 mL per minute. His glucose was 95, calcium was 8.6. Total CK was 1198. Urinalysis was unremarkable and his hepatitis A, B and C serology were negative. DISCHARGE MEDICATIONS: He was discharged home to continue on Ativan 1 mg 3 times a day as needed. I have increased his Lexapro to 20 mg once a day and was given a prescription for Zofran 4 mg ODT every 6 hours as needed. FINAL DISCHARGE DIAGNOSES: 1. Acute kidney injury, improving. His creatinine is down from 6.5 to 1.7. 2. Rhabdomyolysis, CK trending down from 7000 to 1200. 3. Seizure disorder. His Keppra was discontinued. 4. Hepatosplenomegaly, the cause of which is not clear. His hepatitis serology was all negative. The patient was advised to drink plenty of fluids, follow with Dr. Valenzuela in 1 week time for an outpatient EEG and also advised his mom to make an appointment for him to be seen by his primary care physician to investigate his hepatosplenomegaly further. ANYI/QUAN DR: Saturnino TID: [id number]
== END 2021-06-18 14:00 | disposition home or self-care (01) | DRG 558 ==
LOC: ER 19:01 → 1 SOUTH 06-15 16:13
PROVIDERS: ADMIT Internal Medicine; ATTEND Internal Medicine
DX: M62.82 Rhabdomyolysis (principal); N17.9 Acute kidney failure, unspecified; E86.0 Dehydration; G40.909 Epilepsy, unspecified, not intractable, without status epilepticus; F41.0 Panic disorder [episodic paroxysmal anxiety]; R16.2 Hepatomegaly with splenomegaly, not elsewhere classified; Z20.822 Contact with and (suspected) exposure to COVID-19; T42.6X5A Adverse effect of other antiepileptic and sedative-hypnotic drugs, initial encounter; Z83.3 Family history of diabetes mellitus; Z86.61 Personal history of infections of the central nervous system; Z87.891 Personal history of nicotine dependence; Y92.89 Other specified places as the place of occurrence of the external cause
CPT/HCPCS: 36415; 74176; 76770; 80048; 80053; 81001; 82550; 85025; 85027; 86705; 86709; 86803; 87340; 96361; 96374; J2060; J2405; J7120; Q0162; Q0169; U0005; 99285-25; J7030

== ENCOUNTER 2021-11-25 19:44 | Emergency (ER) | payer OTHER ==
[~2021-11-25] VITALS: Ht 180.3 cm; Wt 76.0 kg
[~2021-11-25 19:44] MED LIST changes: +ESCITALOPRAM OX20 MG PO; +LORA-254 PO
--- NOTE | 2021-11-25 20:42 | PHYS DOC ---
Past History Past Medical History: Anxiety, Seizure, Other Additional Past Medical Histor: meningitis as infant, seizures Past Surgical History: No Surgical History Smoking: Non-smoker Alcohol Use: None Drug Use: Marijuana Adult General HPI HPI Patient is an otherwise healthy 21-year-old male who presents with about 1 to 2 days of fever, and cough. Denies any recent travel, traumas, chest pain, shortness of breath no abdominal pain, nausea, vomiting. Wants a COVID swab Review of Systems Review of Systems Review of systems otherwise unremarkable except noted in HPI Allergies Allergies Allergies Coded Allergies Type Severity Reaction Last Updated Verified No Known Drug Allergies 04/26/21 No Physical Exam Physical Exam Constitutional: Well developed, well nourished, no acute distress, non-toxic a ppearance. [] HENT: Normocephalic, atraumatic, bilateral external ears normal, oropharynx moist, no oral exudates, nose normal. [] Eyes: conjunctiva normal, no discharge. [] Neck: Normal range of motion, no tenderness, supple, no stridor. [] Cardiovascular:Heart rate regular rhythm, no murmur [] Lungs & Thorax: Bilateral breath sounds clear to auscultation [] Neurologic: Alert and oriented X 3, normal motor function, normal sensory function, no focal deficits noted. [] Psychologic: Affect normal, judgement normal, mood normal. [] EKG EKG [] Radiology/Procedures Radiology/Procedures [] Heart Score C/O Chest Pain: No Risk Factors: Risk Factors: DM, Current or recent (<one month) smoker, HTN, HLP, family history of CAD, obesity. Risk Scores: Risk Factors: DM, Current or recent (<one month) smoker, HTN, HLP, family history of CAD, obesity. Course & Med Decision Making Course & Med Decision Making Patient is otherwise healthy 21-year-old male presents with fever and cough for 1 to 2 days, wanting COVID and flu swab Vital signs nonconcerning. Physical exam noted above. COVID swab and flu swab pending, patient going home and wanting us to call when results come in. Chest x-ray nonconcerning. Denied need for Tylenol or ibuprofen or Benadryl. Discussed symptom management at home. Advised follow-up with primary care physician. Gave education on COVID and COVID quarantine Give return precautions to the ED. Patient grateful, verbalized understanding and agreed with plan of discharge. Dragon Disclaimer Dragon Disclaimer This electronic medical record was generated, in whole or in part, using a voice recognition dictation system. Departure Departure: Impression: Primary Impression: Viral syndrome Disposition: HOME / SELF CARE / HOMELESS Condition: GOOD Referrals: NON,STAFF (PCP) NIRMAL DOMÍNGUEZ MD Additional Instructions: You have been tested for or diagnosed with COVID-19. It is an infection caused by a new type of coronavirus. COVID-19 will cause cold-like or mild flu symptoms in most. It can cause more severe symptoms like problems breathing in some. There is no treatment for COVID-19. The body will clear the infection over time. Self-care will help to ease discomfort. Steps to Take: Self-Care Rest as needed. Healthy habits may help you feel better. Steps include: Choose healthy foods including fruits and vegetables. Drink water throughout the day. Get plenty of sleep each night. If you smoke, try to quit. It may ease breathing. Avoid alcohol. Keep Others Healthy The virus can spread to others. Droplets are released every time you sneeze or cough. The droplets can get into the mouth, nose, or eyes of people near you and lead to infection. To lower the chances of spreading COVID-19 to others: Stay at home until your doctor has said it is safe to leave. If you tested positive this will mean staying isolated until both of the following are true: At least 7 days have passed since the start of illness. You are free of fever for at least 72 hours without the use of medicine. During this time: - Avoid public areas, events, or transportation. Do not return to work or school until your doctor has said it is safe to do so. - Call ahead if you need to go to a medical center. Let them know you may have COVID-19. It will help them guide you where to go. They may also ask you to wear a facemask when you come to the office. - If you call for emergency medical services, let them know you may have COVID- 19. While at home: - Try to avoid close contact with others. Stay about 6 feet away. - If possible, spend most of your time in a separate room from others. - Use a face mask if you will be in close contact with others such as sharing a room or vehicle. - Have someone wipe down common surfaces in the home. Use household aviation manager every day on areas like doorknobs, counters, or sinks. - Cough or sneeze into a tissue. Throw the tissue away right after use. If a tissue is not available, cough or sneeze into your elbow. - Wash your hands often. Wash them after sneezing or coughing. Use soap and aric er and wash for at least 20 seconds. Alcohol based hand kitchen cleaner can be used if soap and water is not available. - Do not prepare food for others. Avoid sharing personal items like forks, spoons, or toothbrushes. - Avoid close contact with pets while you are sick. There is no evidence of the virus passing to pets. This is a safety step until more is known about this virus. Isolation can be frustrating. Social interaction can help. Keep in touch with friends and family through phone and tech options. You can still interact with others in your home, just keep a safe distance of about 6 feet. Follow-up: Your doctors office will check in with you to see if there are any changes in your health. You may be asked to keep track of symptoms to share with them. They will also let you know when you are clear to be in public again. Problems to Look Out For: Contact your doctor if your recovery is not going as you expect. Get emergency care if you have problems such as: - Trouble breathing - Nonstop chest pain or pressure - Changes in awareness, confusion, or problems waking - Lips or face have bluish color - Worsening of symptoms If you think you have an emergency, call for emergency medical services right away. As taken from [facility] [place] Diane [facility] HO MD Nov 25, 2021 20:42
[2021-11-25 20:50] VITALS: BP 134/77
--- NOTE | 2021-11-25 21:31 | RAD ---
Exam: Chest one view INDICATION: Fever, cough TECHNIQUE: Frontal view of the chest Comparisons: 06/12/2021 FINDINGS: The cardiomediastinal silhouette and pulmonary vessels are within normal limits. The lung and pleural spaces are clear. IMPRESSION: No acute cardiopulmonary process. Electronically signed by: Chloe Dockery MD (11/25/2021 9:29 PM) SIDRA
[2021-11-25 21:35] LABS: INFLUENZA A PATIENT NEGATIVE (NEGATIVE); INFLUENZA B PATIENT NEGATIVE (NEGATIVE)
--- NOTE | 2021-11-27 10:22 | NUR ---
NEGATIVE COVID RESULTS GIVEN AT 1022.
== END 2021-11-25 21:28 | disposition home or self-care (01) ==
LOC: ER 19:44
DX: B34.9 Viral infection, unspecified (principal); F41.9 Anxiety disorder, unspecified; Z20.822 Contact with and (suspected) exposure to COVID-19
CPT/HCPCS: 71045; 87804; 99284; C9803; U0003